=== PATIENT | female | born 1955 | race Caucasian/White ===

== ENCOUNTER 2016-11-16 08:43 | Outpatient (CLI) | payer BC ==
--- NOTE | ~2016-11-16 | HEMODYNAMI ---
PATIENT:RIN BOB MEDICAL RECORD: [id number] : 55 [id number] ADMISSION DATE: 11/16/16 Generatedon:11/16/201611:28 Patient name: RIN BOB Patient #: [id number] SSN: [id number] : 1955 Date of study: 11/16/2016 Page: Of Hemodynamic Procedure Report Patient Data Patient Demographics Procedure consent was obtained First Name: RIN Gender: Female Last Name: LISBETH : 1955 Patient #: [id number] Age: 61 year(s) Race: SSN: [id number] Additional ID: [id number] Past Medical History Allergies Allergen Reaction Date Comments Reported Other allergy 11/16/2016 Penicillin, morphine Admission Admission Data Admission Date: 11/16/2016 Admission Time: 8:43 Arrival Date: 11/16/2016 Arrival Time: 8:43 Admit Source: Emergency department Procedure Procedure Types Cath Procedure Diagnostic Procedure [facility] w/Coronaries FFR/IVUS Intra-Coronary IVUS Initial PCI Procedure Coronary Stent Initial Miscellaneous Procedures Moderate Sedation up to 30 minutes Procedure Description Procedure Date Procedure Date: 11/16/2016 Procedure Start Time: 11:01 Procedure End Time: 11:27 Procedure Staff Name Function Hany Martinez MD Performing Physician Jaimee Brooks RT Scrub Margaret Padilla RN Nurse Mehnaz Hammond RT Monitor Procedure Data Cath Procedure Fluoroscopy Diagnostic fluoroscopy Total fluoroscopy Time: 6.3 time: 6.3 min min Diagnostic fluoroscopy Total fluoroscopy dose: 514 dose: 514 mGy mGy Contrast Material Contrast Material Type Amount (ml) Isovue 370 106 Entry Location Entry Primary Successful Side Size Upsize Upsize Entry Closure Succes sful Closure Location (Fr) 1 (Fr) 2 (Fr) Remarks Device Remarks Femoral Right 5 Fr 6 Fr Vascade artery Short Closure System Estimated blood loss: 5 ml Diagnostic catheters Device Type Used For End Catheter Placement Cordis 5Fr Pigtail LV Angiography Catheter (MP) Cordis 5Fr JL 4.0 Left Coronary Catheter (MP) Angiography Cordis 5Fr 3DRC Catheter Right Coronary (MP) Angiography Procedure Complications No complications Procedure Medications Medication Administration Route Dosage Oxygen NC 2 l/min Heparin Flush Bag added to field 2 bags (1000units/500ml NS) Lidocaine 2% added to field 20 Radial Cocktail added to field 1 syringe (Verapomil 2mg/Nitro 400mcg/Heparin 1500units) Versed I.V. 1 mg Fentanyl I.V. 50 mcg Versed I.V. 1 mg Fentanyl I.V. 50 mcg Versed I.V. 1 mg Fentanyl I.V. 50 mcg Integrilin (Bolus I.V. 5 ml 2mg/ml) Heparin Bolus I.V. 4000 units Versed I.V. 1 mg Fentanyl I.V. 50 mcg Nitroglycerin IC/IA I.C. 200 mcg Plavix P.O. 600 mg Hemodynamics Rest Heart Rate: 67 (bpm) Pressure Samples Time Site Value (mmHg) Purpose Heart Use Rate(bpm) 11:03 LV 55/-10,6 Snapshot 65 Snapshots Pre Cath Intra NCS Post Cath Vital Signs Time Heart Resp SPO2 NIBP (mmHg) Rhythm Pain Sedation Rate (ipm) (%) Status Level (bpm) 10:49:49 64 18 100 134/80(99) NSR 0 (11) 10(A) , No pain 10:54:44 70 16 100 131/78(105) NSR 0 (11) 10(A) , No pain 10:58:51 66 14 97 113/73(91) NSR 0 (11) 10(A) , No pain 11:02:49 64 18 98 129/80(100) NSR 0 (11) 10(A) , No pain 11:06:57 73 26 97 114/68(87) NSR 0 (11) 9(A) , No pain 11:11:01 75 16 95 105/68(82) NSR 0 (11) 9(A) , No pain 11:15:00 79 16 96 108/69(83) NSR 0 (11) 9(A) , No pain 11:19:00 87 16 95 103/70(79) NSR 0 (11) 9(A) , No pain 11:23:55 96 17 97 119/70(86) NSR 0 (11) 10(A) , No pain Medications Time Medication Route Dose Verified Delivered Reason Note s Effectiveness by by 10:48:54 Oxygen NC 2 l/min Hany Margaret Per physician Juan Padilla RN 10:49:01 Heparin Flush added 2 bags Hany Leach used for Bag to Juan Martinez MD procedure (1000units/500ml field NS) 10:49:06 Lidocaine 2% added 20ml Hany Leach used for to vial Juan Martinez MD procedure field 10:49:13 Radial Cocktail added 1 Hany Leach used for (Verapomil to syringe Juan Martinez MD procedure 2mg/Nitro field 400mcg/Heparin 1500units) 10:59:40 Versed I.V. 1 mg Hany Margaret for sedation Juan Padilla RN 10:59:51 Fentanyl I.V. 50 mcg Hany Margaret for sedation Juan Padilla RN 11:01:34 Versed I.V. 1 mg Hany Margaret for sedation Juan Padilla RN 11:01:48 Fentanyl I.V. 50 mcg Hany Margaret for sedation Juan Padilla RN 11:03:21 Versed I.V. 1 mg Hany Margaret for sedation Juan Padilla RN 11:03:26 Fentanyl I.V. 50 mcg Hany Margaret for sedation Juan Padilla RN 11:05:22 Versed I.V. 1 mg Hany Margaret for sedation Juan Padilla RN 11:05:27 Fentanyl I.V. 50 mcg Hany Margaret for sedation Juan Padilla RN 11:12:20 Heparin Bolus I.V. 4000 Hany Margaret for dose units Juan Padilla RN anticoagulation verified with dr martinez 11:14:17 Integrilin I.V. 5 ml Hany Margaret for (Bolus 2mg/ml) Juan Padilla RN antiplatelet therapy 11:17:38 Nitroglycerin I.C. 200 mcg Hany Leach for IC/IA Juan Martinez MD vasodilation 11:25:51 Plavix P.O. 600 mg Hany Margaret for Juan Padilla RN antiplatelet therapy Procedure Log Time Note 10:20:45 Margaret Padilla RN sent for patient. Start room use. 10:32:40 Diagnostic Cath Status : Elective 10:33:53 Time tracking: Regular hours 10:33:57 Plan of Care:Hemodynamics will remain stable., Cardiac rhythm will remain stable., Comfort level will be maintained., Respiratory function will remain adequate., Patient/ family verbilizes understanding of procedure., Procedure tolerated without complication., Recovers from procedure without complications.. 10:34:51 Informed consent obtained and on chart 10:35:00 Admit Source: Emergency department 10:35:02 Arrival Date: 11/16/2016 8:43:00 AM 10:42:38 Patient received from ED to CCL 1 Alert and oriented. Tansferred to table in Supine position. 10:42:40 Warm blankets applied, and rena hugger turned on for patient comfort. 10:42:41 Correct patient and procedure confirmed by team. 10:42:41 ECG and BP/O2 sat monitors applied to patient. 10:48:46 Vital chart was started 10:48:54 Oxygen 2 l/min NC was given by Margaret Padilla RN; Per physician; 10:49:01 Heparin Flush Bag (1000units/500ml NS) 2 bags added to field was given by Hany Martinez MD; used for procedure; 10:49:06 Lidocaine 2% 20ml vial added to field was given by Hany Martinez MD; used for procedure; 10:49:13 Radial Cocktail (Verapomil 2mg/Nitro 400mcg/Heparin 1500units) 1 syringe added to field was given by Hany Martinez MD; used for procedure; 10:56:11 Baseline sample Acquired. 10:56:28 Rhythm: sinus rhythm 10:56:29 Full Disclosure recording started 10:56:43 H&P Date Dictated: 11/16/2016 ER History on chart., New H&P dictated by physician.. 10:56:44 Pre-procedure instructions explained to patient. 10:56:44 Pre-op teaching completed and patient verbalized understanding. 10:56:45 Family in waiting room. 10:56:47 Patient NPO since Midnight. 10:57:26 Patient allergic to Other allergyPenicillin, morphine 10:57:28 Is the patient allergic to Iodine/contrast media? No. 10:57:29 Was the patient premedicated? No 10:57:47 Is patient on blood thinner?No 10:57:50 Patient diabetic? No. 10:57:53 Previous problem with sedation/anesthesia? No ? 10:57:55 Snore? Yes 10:57:57 Sleep apnea? No 10:57:58 Deviated septum? No 10:57:59 Opens mouth fully? Yes 10:58:00 Sticks out tongue? Yes 10:58:02 Airway obstruction? No ? 10:58:04 Dentures? No ? 10:58:08 Pre procedure: right dorsailis pedis pulse 1+ Palpable, but thready & weak; easily obliterated 10:58:11 Patient pain scale 0/10 ?. 10:58:19 IV patent on arrival in left forearm with 0.9% NaCl at [facility]. 10:59:23 Lab results completed and on chart. 10:59:27 Right Radial & Right Groin area was prepped with chlora-prep and draped in sterile fashion 10:59:28 Alarms reviewed by R. N. 10:59:28 Sharps counted by scrub and verified by R.N. 10:59:34 Physician arrived 10:59:34 --------ALL STOP TIME OUT------ 10:59:35 Final Timeout: patient, procedure, and site verified with staff and physician. All members of the team are in agreement. 10:59:36 Right Radial & Right Groin site verified by team. 10:59:39 Physical assessment completed. ASA score P 2 - A patient with mild systemic disease as per Hany Martinez MD. 10:59:40 Versed 1 mg I.V. was given by Margaret Padilla RN; for sedation; 10:59:42 Sedation plan: IV Moderate Sedation Versed, Fentanyl 10:59:51 Fentanyl 50 mcg I.V. was given by Margaret Padilla RN; for sedation; 11:00:23 Zero performed for pressure channel P1 11:00:43 Zero performed for pressure channel P1 11:00:55 Use device set Femoral Dx 11:00:57 Acist Syringe opened to sterile field. 11:00:57 Bag Decanter opened to sterile field. 11:00:58 Cardinal Cath Pack opened to sterile field. 11:00:58 Terumo 5Fr [place] Sheath opened to sterile field. 11:00:59 St Lars 260cm J .035 wire opened to sterile field. 11:01:01 Acist Hand Control opened to sterile field. 11:01:02 Acist Manifold opened to sterile field. 11:01:02 Cordis Infinity 5Fr Multipack catheter opened to sterile field. 11:01:03 Tegaderm 4 x 4 opened to sterile field. 11:01:04 IV Extension Set opened to sterile field. 11:01:09 Procedure started. 11:01:12 Local anesthetic to right femoral artery with Lidocaine 2% by Hany Martinez MD.INITIAL ACCESS ONLY 11:01:23 A 5 Fr sheath was inserted into the Right Femoral artery 11::34 Versed 1 mg I.V. was given by Margaret Padilla RN; for sedation; 11::48 Fentanyl 50 mcg I.V. was given by Margaret Padilla RN; for sedation; 11:03:02 A Cordis 5Fr Pigtail Catheter (MP) was advanced over the wire and used for LV Angiography. 11:03:21 Versed 1 mg I.V. was given by Margaret Padilla RN; for sedation; 11:03:26 Fentanyl 50 mcg I.V. was given by Margaret Padilla RN; for sedation; 11:03:55 LV hemodynamics recorded. 11:03:57 LV gram done using MACK 11:04:00 Injector settings: Ml/sec: 5, Volume: 15, 11:04:06 EF : 50 % 11:04:08 Catheter removed. 11:04:12 A Cordis 5Fr JL 4.0 Catheter (MP) was advanced over the wire and used for Left Coronary Angiography. 11:04:49 LCA angiography performed. 11:04:51 Injector settings: Ml/sec: 3, Volume: 6, 11:05:22 Versed 1 mg I.V. was given by Margaret Padilla RN; for sedation; 11:05:27 Fentanyl 50 mcg I.V. was given by Margaret Padilla RN; for sedation; 11:05:34 Catheter removed. 11:05:38 A Cordis 5Fr 3DRC Catheter (MP) was advanced over the wire and used for Right Coronary Angiography. 11:06:17 RCA angiography performed. 11:06:20 Injector settings: Ml/sec: 3, Volume: 6, 11:06:43 Catheter removed. 11:06:43 Proceeding to intervention. 11:07:37 Medtronic Launcher 6Fr 3DRC guide catheter opened to sterile field. 11:07:37 Terumo 6Fr [place] Sheath opened to sterile field. 11:07:38 Lopez Whisper J 300cm 0.014 guide wire opened to sterile field. 11:07:38 Merit BasixCompak Inflation Kit opened to sterile field. 11:07:44 [place] IVUS Catheter opened to sterile field. 11:07:52 Sheath upsized to a 6 Fr Short. 11:07:59 6 Fr 3drc guide catheter was inserted over the wire 11:08:47 whisper wire advanced. 11:09:00 IVUS catheter advanced over wire. 11:12:15 IVUS pass to RCA lesion performed. 11:12:16 IVUS catheter removed over wire. 11:12:20 Heparin Bolus 4000 units I.V. was given by Margaret Padilla RN; for anticoagulation; dose verified with dr martinez 11:14:02 Inflation Number: 1 A Medtronic Integrity 4.0 X 15 stent was prepped and advanced across the Mid RCA. The stent was deployed at 13 CHRISTINA for 0:10 (min:sec). 11:14:17 Integrilin (Bolus 2mg/ml) 5 ml I.V. was given by Margaret Padilla RN; for antiplatelet therapy; 11:16:33 Inflation Number: 1 A Medtronic Integrity 4.0 X 22 stent was prepped and advanced across the Prox RCA. The stent was deployed at 13 CHRISTINA for 0:10 (min:sec). 11:17:38 Nitroglycerin IC/IA 200 mcg I.C. was given by Hany Martinez MD; for vasodilation; 11:20:28 Inflation Number: 2 A Medtronic Integrity 4.0 X 12 stent was prepped and advanced across the Mid RCA. The stent was deployed at 11 CHRISTINA for 0:10 (min:sec). 11:20:52 Stent catheter was removed intact over wire. 11:20:53 Wire removed. 11:20:53 Guide catheter removed. 11:21:48 Vascade 6/7 Fr Closure Device opened to sterile field. 11:21:55 Sheath removed intact; hemostasis achieved with Vascade Closure System to the Right Femoral artery. 11:21:57 Procedure ended.(Physican Out) 11:25:35 Fluoroscopy time 06.30 minutes. 11::41 Fluoroscopy dose: 514 mGy 11::41 Flurop Dose total: 514 11:25:45 Contrast amount:Isovue 370 106ml. 11:25:46 Sharps counted by scrub and verified by R.N. 11:25:48 Insertion/operative site no bleeding no hematoma. 11:25:51 Plavix 600 mg P.O. was given by Margaret Padilla RN; for antiplatelet therapy; 11::51 Post-op/insertion site Right Femoral artery dressed using a 4 x 4 and Tegaderm. 11:25:53 Post right femoral artery:stable 11:25:55 Post Procedure Pulses reassessed and unchanged 11:25:58 Post procedure rhythm: unchanged. 11:26:00 Estimated blood loss: 5 ml 11:26:02 Post procedure instruction explained to patient.Patient verbalizes understanding. 11:26:02 Patient needs reinforcement of post procedure teaching. 11:26:59 Procedure type changed to Cath procedure, Diagnostic procedure, LHC, LHC w/Coronaries, FFR/IVUS, Intra-Coronary IVUS Initial, PCI procedure, Coronary Stent Initial, Miscellaneous Procedures, Moderate Sedation up to 30 minutes 11:27:01 Procedure and supply charges have been captured, reviewed, submitted and are correct. 11:27:06 Procedure Complication : No complications 11:27:08 Vital chart was stopped 11:27:09 See physician's report for complete and final results. 11:27:12 Report given to Outpatients. 11:27:15 Patient transfered to Outpatients with Stretcher. 11:27:16 Procedure ended. 11:27:16 Full Disclosure recording stopped 11:27:26 ACC-PCI Only Patient was given prescriptions, or instructed by Hany Martinez MD to start/continue the following medications upon discharge: Plavix 11:27:27 End room use (Document Last) Intervention Summary Intervention Notes Time ActionType Lesion and Equipment Action# Pressure Duration Attributes Used 11:14:02 Place stent Mid RCA Medtronic 1 13 00:10 Integrity 4.0 X 15 stent 11:16:33 Place stent Prox RCA Medtronic 1 13 00:10 Integrity 4.0 X 22 stent 11:20:28 Place stent Mid RCA Medtronic 2 11 00:10 Integrity 4.0 X 12 stent Device Usage Item Name Manufacture Quantity Catalog Hospital Part Current Minima l Lot# / Number Charge Number Stock Stock Serial# Code Acist Acist 1 12891 191626 773464 274974 20 Syringe Medical Systems Inc Bag Microtek 1 2002S 965287 29094 025315 5 Decanter Medical Inc. Cardinal Cardinal 1 [id number] 758640 05654 276222 5 Cath Pack Health Terumo 5Fr Terumo 1 [id number] 823043 989145 873080 [address] [place] [address] Lars 1 488078 481448 751478 859872 30 260cm J .035 wire Acist Hand Acist 1 77802 832137 741894 014936 5 Control Medical Systems Inc Acist Acist 1 57973 137697 514460 369015 5 Manifold Medical Systems Inc Cordis Cardinal 1 NW9180 702384 60334 734775 30 Infinity Health 5Fr Multipack catheter Tegaderm 4 3M 1 1626W 245776 156112 201475 5 x 4 IV Hospira 1 09059-13 838982 33803 034711 5 Extension Set Cordis 5Fr Cardinal 1 984616 5 Pigtail Health Catheter (MP) Cordis 5Fr Cardinal 1 563586 5 JL 4.0 Health Catheter (MP) Cordis 5Fr Cardinal 1 535684 5 3DRC Health Catheter (MP) Medtronic Medtronic 1 [id number] 032441 446805 134707 1 Launcher 6Fr 3DRC guide catheter Terumo 6Fr Terumo 1 [id number] 975605 478492 271372 40 [place] Sheath Lopez Lopez 1 [id number] 775936 413197 987309 5 Whisper J Vascular 300cm 0.014 guide wire Merit Merit 1 [id number] 475724 946935 144120 15 [place] Rimell Limited Medical Inflation Kit [place] 1 [id number] 975042 153018 848601 8 [place] IVUS Catheter Medtronic Medtronic 1 [id number] 638759 761991 1 [id number] Integrity 4.0 X 15 stent Medtronic Medtronic 1 [id number] 699007 054925 315386 7 [id number] Integrity 4.0 X 22 stent Medtronic Medtronic 1 [id number] 632749 697320 934915 9 [id number] Integrity 4.0 X 12 stent Vascade 03/20 Cardiva 1 [id number] 579971 213741 524133 5 Fr Closure Medical, Device Inc. Signature Audit [place] Stage Time Signature Unsigned Intra-Procedure 11/16/2016 Mehnaz Hammond 11:28:46 AM RT(R) Signatures Monitor : Mehnaz Hammond RT Signature : Date : Time : [facility] [address] [place] [address]
[2016-11-16 09:22] LABS: BASOPHILS 0.2 % (0.0-2.0); EOSINOPHILS 1.3 % (0-7); HEMATOCRIT 38.6 % (36.0-48.0); HEMOGLOBIN 12.8 g/dL (12-16); LYMPHOCYTES 27.5 % (15-50); MCH 32.1 pg (26.0-34.0); MCHC 33.2 g/dL (31.0-37.0); MCV 96.7 fL (80.0-100.0); MEAN PLATELET VOLUME 9.9 fL (7.4-10.4); MONOCYTES 4.8 % (2-11); NEUTROPHILS 66.2 % (40-80); PLATELET COUNT 214 10x3/uL (130-400); RBC 3.99 10x6/uL (4.00-5.40); RDW 12.7 % (11.5-14.5); WBC 6.3 10x3/uL (4.8-10.8)
[2016-11-16 09:34] LABS: ALBUMIN 3.4 g/dL (3.4-5.0); ALKALINE PHOSPHATASE 81 U/L (46-116); ALT (SGPT) 21 U/L (10-68); BILIRUBIN - TOTAL 0.27 mg/dL (0.2-1.3); CALC OSMOLALITY 280 mosm/kg (275-300); CARBON DIOXIDE 28.7 mmol/L (21.0-32.0); CHLORIDE - SERUM 105 mmol/L (98-107); CREATININE - SERUM 0.7 mg/dL (0.6-1.3); GLUCOSE 119 mg/dL (74-106); POTASSIUM - SERUM 3.8 mmol/L (3.5-5.1); SODIUM 141 mmol/L (136-145); UREA NITROGEN 11 mg/dL (7-18); eGFR NON AFRICAN AMERICAN 90 mL/min (90-120)
[2016-11-16 09:45] LABS: CKMB 0.7 U/L (0.0-3.6); CREATINE KINASE 31 UL (21-215)
[2016-11-16 09:46] LABS: TROPONIN-I < 0.017 ng/mL (0.000-0.060)
[2016-11-16] MEDS ORDERED: BAYER CHEWABLE81 MG PO (12:03)
[2016-11-16] MEDS ORDERED: PLAVIX75 MG PO (12:03)
--- NOTE | 2016-11-16 12:03 | NUR ---
1145 LYING FLAT, AWAKE TALKING WITH FAMILY AT BEDSIDE. ALL VITALS WNL. NSR RATE 88 W NO C/O CHEST PAIN. PULSES PALP X 4. R GROIN 6F VASCADE C/D/I WITH NO HEMATOMA OR BLEEDING. WILL MONITOR CLOSELY FOR BLEEDING.
--- NOTE | 2016-11-16 12:15 | NUR ---
1215 6 FR VASCADE R/GROIN CDI NO BLEEDING NO HEMATOMA NOTED. VSS WITH DR TEMPLE AT BEDSIDE TALKING TO FAMILY 1245 CHEST PAIN DENIED WITH VSS 6 FR VASCADE R/GROIN CDI NO BLEEDING NO HEMATOMA NOTE INSTRUCTED PATIENT TO KEEP HEAD FLAT ON PILLOW WITH RLE STRAIGHT 1315 SANDWICH AND SODA TO BEDSIDE WITH FAMILY ASSISTING. CHEST PAIN IS DENIED. 6 FR VASCADE R/GROIN CDI NO BLEEDING NO HEMATOMA NOTED
--- NOTE | 2016-11-16 14:00 | NUR ---
1400 6 FR VASCADE R/GROIN CDI WITH VSS PATIENT DENIED CHEST PAIN AT THIS TIME. NO BLEEDING NO HEMATOMA NOTED PULSES PRESENT AND MARKED 1500 PIV REMOVED WITH DRESSING APPLIED. 6 FR VASCADE R/GROIN CDI NO BLEEDING NO HEMATOMA NOTED CHEST PAIN IS DENIED. PATIENT UP TO GET DRESSED FOR DISCHARGE
--- NOTE | 2016-11-16 15:38 | NUR ---
DISCHARGE INSTRUCTIONS GONE OVER WITH PATIENT AND FAMILY 6 FR VASCADE R/GROIN CDI NO BLEEDING NO HEMATOMA NOTED CHEST PAIN IS DENIED. TRANSPORTED VIA FOR FAMILY TO DRIVE HOME
--- NOTE | 2016-11-22 13:59 | CN ---
PATIENT NAME:RIN BOB MEDICAL RECORD: [id number] : 55 LOCATION:D.OPS ADMIT DATE: ACCOUNT: [id number] CONSULTING PHYSICIAN: ROMA TEMPLE MD REFERRING PHYSICIAN: ROMA TEMPLE MD DATE OF CONSULTATION: 11/16/2016 DIAGNOSES: 1. Chest pain compatible with angina. 2. Abnormal ECG. 3. Shortness of breath, dyspnea on exertion. HISTORY OF PRESENT ILLNESS: Mrs. Bob has had 1 month of progressive chest pain, shortness of breath. She had much worsening over this past week. She presents with multiple hours of chest pain. She has T-wave inversions anteriorly on her EKG. PHYSICAL EXAMINATION: GENERAL APPEARANCE: Well-nourished, well-developed, appears stated age. Level of distress, comfortable. PSYCHIATRIC: Mental status, alert, normal affect. Orientation, oriented to time, place and person. EYES: Lids and conjunctiva, noninjected. No discharge, no pallor. ENT: Lips, teeth, gums, normal dentition. Oropharynx, no cyanosis, no pallor. NECK: Carotid arteries, bilateral normal upstroke, no bruits, no thrills. JUGULAR VEINS: No jugular venous pressure or distention. CERVICAL LYMPH NODES: Nontender, nonenlarged. THYROID: Not enlarged. Nontender. No nodules. LUNGS: Respiratory effort, unlabored. CHEST: Normal curvature. No thoracic deformity. No chest wall tenderness. Percussion, resonant. Auscultation, clear. No wheezes, no rales, no rhonchi. CARDIOVASCULAR: Precordial exam, nondisplaced. No heaves or pericardial thrills. Rate and rhythm, regular. Heart sounds, normal S1, normal S2. No S3, no gallop, no rub. Systolic murmur, not heard. Diastolic murmur, not heard. EXTREMITIES: No cyanosis, no edema. Peripheral pulses, full and equal in all extremities, except as noted. No bruits appreciated. ABDOMEN: Soft, nondistended. Normal aorta. No bruit. Nontender. No masses. Liver, nontender, no hepatomegaly. Spleen, nontender, no splenomegaly. MUSCULOSKELETAL: No joint tenderness. No joint swelling. No erythema. NEUROLOGICAL: Normal gait, normal strength, normal tone. SKIN: Warm and dry. REVIEW OF SYSTEMS: The patient reports easy bruising but reports no swollen glands. The patient reports no fever, no night sweats, no significant weight gain, no significant weight loss. No significant exercise tolerance. The patient reports no dry eyes, no irritation, no vision change. Patient reports no difficulty hearing and no ear pain. Patient reports no frequent nose bleeds or nose and sinus problems. Patient reports on arm pain on exertion. No shortness of breath while lying down. No history of heart murmur. Patient reports no cough, no wheezing or coughing up blood. Patient reports no abdominal pain, no vomiting. Normal appetite. No diarrhea and not vomiting blood. No nausea and no constipation. Patient reports no incontinence. No difficulty urinating. No hematuria. No increased frequency. Patient reports no muscle aches. No weakness, no arthralgias, no back pain. No swelling of the extremities. Patient reports no abnormal mole, no jaundice, no rashes. Reports CONSULT REPORT [id number] BOB,RIN no loss of consciousness. No weakness and no numbness. No seizures, dizziness, or headaches. The patient reports no depression, no sleep disturbance, feeling safe in a relationship and no alcohol abuse. Patient reports on fatigue. Reports no runny nose or sinus pressure. No itching, no hives, and no frequent sneezing. OVERALL IMPRESSION: Chest pain compatible with angina in a rapidly progressive unstable fashion with abnormal ECG, most likely she has recurrent hemodynamically significant coronary artery disease. We will proceed with coronary angiography. Further care depends upon the findings of the angiography. TRANSINT:[id number] Voice Confirmation ID: [id number] DOCUMENT ID: [id number] ROMA TEMPLE MD at 1359 CC: [id number] DICTATION DATE: 11/16/16 1031 FACSIMILE MACHINE OPERATOR: 11/16/16 1348 DEP CLI 11/16/16 [id number] [place] [address]
--- NOTE | 2016-11-22 13:59 | OP ---
PATIENT NAME: RIN BOB MEDICAL RECORD: [id number] :55 LOCATION:D.OPS ADMISSION DATE: SURGEON: ROMA TEMPLE MD DATE OF OPERATION: 11/16/2016 PROCEDURES: 1. PTCA stent, RCA. 2. Intravascular ultrasound, RCA. 3. Left heart catheterization. 4. Selective coronary angiography. 5. Left ventriculogram. INDICATION: Angina and coronary artery disease. DESCRIPTION OF THE PROCEDURE: After informed consent was obtained and after detailed explanation of risks, benefits as well as alternative therapies, the patient elected to proceed with angiogram and angioplasty. The right femoral area was prepped and draped in normal sterile fashion. The right femoral artery was cannulated via modified Seldinger technique with placement of 6-[place] sheath. All catheters exchanged through this sheath. FINDINGS: The left ventriculogram was performed in standard 30-degree MACK view, reveals good cardiac wall motion, ejection fraction 50%. SELECTIVE CORONARY ANGIOGRAPHY: 1. Left main showed no significant angiographic disease. 2. Left anterior descending has mild irregularities, but no flow-limiting stenosis. 3. The left circumflex shows mild irregularities, but no flow-limiting stenosis. 4. Right coronary has a heavy calcification throughout the proximal mid vessel with greater than 75% stenosis confirmed by intravascular ultrasound. PERCUTANEOUS TRANSLUMINAL CORONARY ANGIOPLASTY STENT OF THE RIGHT CORONARY ARTERY: Stent used for 4.0 x 15, 4.0 x 12, 4.0 x 22, all Integrity stents. Result was 0% residual stenosis. OVERALL IMPRESSION: Successful percutaneous transluminal coronary angioplasty stent of the right coronary artery going from greater than 75% initial stenosis to 0% residual. TRANSINT:[id number] Voice Confirmation ID: [id number] DOCUMENT ID: [id number] ROMA TEMPLE MD at 1359 CC: [id number] DICTATION DATE: 11/16/16 1126 BREAD MOLDER: 11/16/16 1642 DEP CLI 11/16/[address] [address]
== END 2016-11-16 15:42 | disposition home or self-care (01) ==
LOC: D.OPS 08:43 → D.ER 08:43 → EDSTATUS 13:15 → D.OPS 15:42
PROVIDERS: Emergency Medicine
DX: I25.10 Atherosclerotic heart disease of native coronary artery without angina pectoris (principal); R94.31 Abnormal electrocardiogram [ECG] [EKG]; R06.00 Dyspnea, unspecified; R07.9 Chest pain, unspecified

== ENCOUNTER 2016-12-02 09:20 | Emergency (ER) | payer BC ==
[~2016-12-02 09:20] MED LIST: BAYER CHEWABLE81 MG PO; PLAVIX75 MG PO
[2016-12-02 09:46] LABS: BASOPHILS 0.5 % (0.0-2.0); EOSINOPHILS 2.5 % (0-7); HEMATOCRIT 36.6 % (36.0-48.0); HEMOGLOBIN 11.9 g/dL (12-16); IMMATURE GRANULOCYTES 0.2 % (0-5); LYMPHOCYTES 33.7 % (15-50); MCH 31.5 pg (26.0-34.0); MCHC 32.5 g/dL (31.0-37.0); MCV 96.8 fL (80.0-100.0); MEAN PLATELET VOLUME 9.7 fL (7.4-10.4); MONOCYTES 6.3 % (2-11); NEUTROPHILS 56.8 % (40-80); PLATELET COUNT 250 10x3/uL (130-400); RBC 3.78 10x6/uL (4.00-5.40); RDW 12.6 % (11.5-14.5)
[2016-12-02 10:09] LABS: APTT 34.5 SECONDS (22.8-39.4); INR 1.02 (0.85-1.17); PROTIME 13.3 SECONDS (11.6-15.0)
[2016-12-02 10:19] LABS: ALBUMIN 3.7 g/dL (3.4-5.0); ALKALINE PHOSPHATASE 84 U/L (46-116); ALT (SGPT) 20 U/L (10-68); CALC OSMOLALITY 283 mosm/kg (275-300); CALCIUM 8.9 mg/dL (8.5-10.1); CARBON DIOXIDE 30.3 mmol/L (21.0-32.0); CHLORIDE - SERUM 105 mmol/L (98-107); CREATININE - SERUM 0.7 mg/dL (0.6-1.3); GLUCOSE 85 mg/dL (74-106); PROTEIN - SERUM 7.4 g/dL (6.4-8.2); SODIUM 143 mmol/L (136-145); UREA NITROGEN 13 mg/dL (7-18); eGFR NON AFRICAN AMERICAN 90 mL/min (90-120)
== END 2016-12-02 12:24 | disposition home or self-care (01) ==
LOC: D.ER 09:20
PROVIDERS: Emergency Medicine
DX: K62.5 Hemorrhage of anus and rectum (principal); C44.90 Unspecified malignant neoplasm of skin, unspecified

== ENCOUNTER → 2018-10-21 14:36 | Outpatient (CLI) | payer BC | END | disposition home or self-care (01) | LOC: D.MRI 14:36 | DX: M25.552 Pain in left hip (principal) ==